=== PATIENT | male | born 1995 ===

== ENCOUNTER 2022-05-21 22:05 | Emergency (ER) | payer MEDICAID, SELFPAY ==
[2022-05-21 22:30] VITALS: BP 133/76; BP 170/90; PULSE 104; PULSE 113; RESP 16; TEMP 36.8; O2SAT 97; O2SAT 99; BMI 26.8
--- NOTE | 2022-05-22 01:38 | PC.NURSE ---
As I was about to operating room registered nurse this patients' room to assess him for the first time I found the pt standing in the hallway. I asked the pt if he was ok and he responded yeah i want to go hme. I introduced myself and asked him if he had spoken with the doctor yet. The patients response was this: No man, I've been in there for two hours and not one fucking person has come in my room. The patient had been in his room for less than an hour, but I decided not to tell the pt this. I responded with the doctor should be in to see you soon but I'm here to talk to you now. But if you need to go you arealso free to leave. The pt then replied with this: thanks, smart ass. He then proceeded to walk out. As i did not feel like entertaining this pt with an argument that is not based in reality, I let him leave the department.
== END 2022-05-22 01:42 | disposition left against medical advice (07) ==
PROVIDERS: Emergency Provider Emergency Medicine
DX: R22.32 Localized swelling, mass and lump, left upper limb (principal)
CPT/HCPCS: 99281

== ENCOUNTER 2022-05-24 14:27 | Emergency (ER) | payer MEDICAID, SELFPAY ==
--- NOTE | 2022-05-24 15:05 | ED_ITS ---
HPI - Skin/Abscess/Foreign Bdy General Chief complaint: Skin/Abscess/Foreign Body <Kassidy Aguilar CNP - Last Filed: 05/24/22 15:08> Stated complaint: abscess under l arm <Kassidy Aguilar CNP - Last Filed: 05/24/22 15:08> Time Seen by Provider: 05/24/22 16:21 <Kassidy Aguilar CNP - Last Filed: 05/24/22 15:08> Source: patient and RN notes reviewed <JUDITH Gonzalez - Last Filed: 05/24/22 17:20> Mode of arrival: ambulatory <JUDITH Gonzalez - Last Filed: 05/24/22 17:20> Limitations: no limitations <JUDITH Gonzalez - Last Filed: 05/24/22 17:20> History of Present Illness HPI narrative: This is a 17-ware-llp-male presenting to the emergency department with complaint of lump in left armpit x 3 days. Patient states that he was seen at an urgent care two days ago, where he was given a course of Keflex and Bactrim. he states that after taking the Keflex he became very itchy and discontinued taking both antibiotics. He states that he has had increased pain, swelling and redness to the region. Denies any drainage. Denies any fevers or chills. Denies history of abscesses in the past. Patient reports that he had his tetanus immunization updated last year. <JUDITH Gonzalez - Last Filed: 05/24/22 17:20> MD complaint: abscess/boil <JUDITH Gonzalez - Last Filed: 05/24/22 17:20> Onset (ago): day(s) <JUDITH Gonzalez - Last Filed: 05/24/22 17:20> Tetanus up to date: yes <JUDITH Gonzalez - Last Filed: 05/24/22 17:20> Location: LUE <JUDITH Gonzalez Last Filed: 05/24/22 17:20> Severity: moderate <JUDITH Gonzalez Last Filed: 05/24/22 17:20> Quality: aching <JUDITH Gonzalez Last Filed: 05/24/22 17:20> Pain Consistency: constant <JUDITH Gonzalez - Last Filed: 05/24/22 17:20> Relieving factors: none <JUDITH Gonzalez - Last Filed: 05/24/22 17:20> Exacerbating factors: palpation and movement <JUDITH Gonzalez - Last Filed: 05/24/22 17:20> Context: none <JUDITH Gonzalez - Last Filed: 05/24/22 17:20> Associated symptoms: denies other symptoms <JUDITH Gonzalez - Last Filed: 05/24/22 17:20> Treatments prior to arrival: none <JUDITH Gonzalez - Last Filed: 05/24/22 17:20> Related Data Allergies/Adverse reactions: Allergies Allergy/AdvReac Type Severity Reaction Status Date / Time seafood Allergy Angioedema Verified 05/21/22 23:35 <Kassidy Aguilar CNP - Last Filed: 05/24/22 15:08> Review of Systems Review of Systems: Yes all other systems are reviewed and are negative <JUDITH Gonzalez - Last Filed: 05/24/22 17:20> [facility] Social History Social History: Social History Advance Directives: No Advance Directives Information Provided: No <Kassidy Aguilar CNP - Last Filed: 05/24/22 15:08> Physical Exam Vital Signs: Vital Signs: Last Vital Signs Temp 97.8 F 05/24/22 16:25 Pulse 83 05/24/22 16:25 Resp 15 05/24/22 16:25 BP 129/61 05/24/22 16:25 Pulse Ox 100 05/24/22 16:25 O2 Del Method 05/24/22 16:25 BMI result Body Mass Index 26.8 <Kassidy Aguilar CNP - Last Filed: 05/24/22 15:08> Vital Signs: Last Vital Signs Temp 97.8 F 05/24/22 16:25 Pulse 83 05/24/22 16:25 Resp 15 05/24/22 16:25 BP 129/61 05/24/22 16:25 Pulse Ox 100 05/24/22 16:25 O2 Del Method 05/24/22 16:25 BMI result Body Mass Index 26.8 <JUDITH Gonzalez - Last Filed: 05/24/22 17:20> Appearance: Alert. Oriented X3. No acute distress. HEENT: normal inspection CVS: Normal heart rate and rhythm. Pulses normal. Respiratory: No respiratory distress. Skin: Left axilla with 3cm round fluctuant mass noted with surrounding erythema. No drainage. Skin warm and dry. Normal skin color. Normal skin turgor. No rashes. Extremities: Normal inspection. Full ROM x 4 Neuro: Oriented X 3. No motor deficit. No sensory deficit. <JUDITH Gonzalez - Last Filed: 05/24/22 17:20> Course Course Course Narrative: This is an RME: Additional HPI, ROS, PE not included below will be deferred to primary provider. Patient is a 26-year-old male who presents emergency department for evaluation of an signs under left arm/axilla. He was seen at urgent care 2 days ago, given a prescription for 2 antibiotics of which he does not recall the name, and states that he became very itchy, both of his arms became very red and he thought he was having a reaction to the antibiotics therefore he stopped taking them after 1 day. Reports increase in pain, swelling, and redness to the abscess. Plan: placed back in waiting room pending bed availability, likely to require incision and drainage <Kassidy Aguilar CNP - Last Filed: 05/24/22 15:08> Reevaluation(s) Reevaluation #1: Patient seen and evaluated. Incision and drainage performed, patient tolerated procedure well without any complications or concerns. <JUDITH Gonzalez - Last Filed: 05/24/22 17:20> Time: 17:12 <JUDITH Gonzalez - Last Filed: 05/24/22 17:20> Medical Decision Making Medical Decision Making MDM Narrative: 32-zfes-qpk-male presenting today with an abscess to his left axilla requiring I&D. Patient was mildly hypertensive with a BP of 149/65 upon arrival, recheck 129/61, all other vital signs within normal limits. I&D performed with moderate amount of purulent drainage expressed. Patient previously seen at urgent care, given Keflex and bactrim. Discussed with patient to continue course of Bactrim, discontinue Keflex as per patient this caused him to break out in a rash. Counseled patient on good wound care with warm soaks and compresses. Encouraged patient to keep close eye on area, and to return with any new or worsening symptoms. Patient understands and agrees with plan. <JUDITH Gonzalez - Last Filed: 05/24/22 17:20> Differential Diagnosis Differential Diagnoses: The differential diagnosis associated with the presentation includes <JUDITH Gonzalez - Last Filed: 05/24/22 17:20> Abscess, cyst, cellulitis, hematoma <JUDITH Gonzalez - Last Filed: 05/24/22 17:20> Procedures Abscess I/D Site: upper extremity <JUDITH Gonzalez - Last Filed: 05/24/22 17:20> Side (if applicable): left <JUDITH Gonzalez - Last Filed: 05/24/22 17:20> Local Anesthetic: lidocaine 1% <JUDITH Gonzalez - Last Filed: 05/24/22 17:20> Amount of anesthesia used (mL): 1 <JUDITH Gonzalez - Last Filed: 05/24/22 17:20> Technique: incised with blade <JUDITH Gonzalez - Last Filed: 05/24/22 17:20> Sent for culture/gram staining?: No <JUDITH Gonzalez - Last Filed: 05/24/22 17:20> Irrigation: Yes <JUDITH Gonzalez - Last Filed: 05/24/22 17:20> Packing used?: none <JUDITH Gonzalez - Last Filed: 05/24/22 17:20> Discharge Plan Discharge Clinical Impression: Abscess <Kassidy Aguilar CNP - Last Filed: 05/24/22 15:08> Patient Disposition: Home, Self-Care <Kassidy Aguilar CNP - Last Filed: 05/24/22 15:08> Instructions: Abscess (ED), Abscess Incision and Drainage (DC) <Kassidy Aguilar CNP - Last Filed: 05/24/22 15:08> Additional Instructions: Continue previously prescribed antibiotic as directed. Apply warm compresses to the area multiple times a day. Clean wound clean and dry. If you develop new or worsening symptoms call 911 or come back to the ER for further evaluation. <Kassidy Aguilar CNP - Last Filed: 05/24/22 15:08> Stand Alone Forms: Work/School Release <Kassidy Aguilar CNP - Last Filed: 05/24/22 15:08>
[2022-05-24 15:06] VITALS: BP 149/65; PULSE 60; RESP 78; TEMP 37; O2SAT 100; BMI 26.8
[2022-05-24 16:25] VITALS: BP 129/61; PULSE 83; RESP 15; TEMP 36.6; O2SAT 100
== END 2022-05-24 17:13 | disposition home or self-care (01) ==
PROVIDERS: Emergency Provider Emergency Medicine Emergency Medical Services
DX: L02.412 Cutaneous abscess of left axilla (principal)
CPT/HCPCS: 10060; 99284

== ENCOUNTER 2022-08-12 22:12 | Emergency (ER) | payer OTHER, SELFPAY ==
[2022-08-12 22:19] VITALS: BP 123/69; PULSE 94; RESP 18; TEMP 36.8; O2SAT 97; BMI 28.3
--- NOTE | 2022-08-12 22:36 | ED_ITS ---
HPI - Headache General Chief Complaint: Headache Stated Complaint: Pain in head Time Seen by Provider: 08/12/22 22:27 Source: patient Mode of arrival: ambulatory Limitations: no limitations History of Present Illness HPI Narrative: Patient complaining of sharp shooting pain left occipital area for last 2- 3 days no history of migraine headaches in the past and also having cold symptoms for last few days. Patient claimed that he has been taking tramadol, ibuprofen every 4-6 hours not in any distress no fever no chills Related Data Previous Rx's Medication Instructions Recorded zfcwrawack-zjdrmyuzuemai-aldujhvk 1 cap PO Q6H PRN headache #20 caps 08/12/22 50 mg-300 mg-40 mg capsule (Fioricet) Allergies Allergy/AdvReac Type Severity Reaction Status Date / Time seafood Allergy Angioedema Verified 05/21/22 23:35 Review of Systems Review of Systems: Yes all other systems are reviewed and are negative [facility] Social History Social History Alcohol intake: former Smoked in Last 30 Days: No Substance Use Type: Marijuana Substance Use Frequency: Daily Last Used Substance: Hours (ago) Advance Directives: No Advance Directives Information Provided: No Physical Exam Vital Signs: Vital Signs: Last Vital Signs Temp 98.2 F 08/12/22 22:19 Pulse 94 08/12/22 22:19 Resp 18 08/12/22 22:19 BP 123/69 08/12/22 22:19 Pulse Ox 97 08/12/22 22:19 O2 Del Method Room Air 08/12/22 22:19 BMI result Body Mass Index 28.3 Appearance: Alert. Oriented X3. No acute distress. Eyes: PERRLA, No Nystagmus HEENT: Pharynx normal. Oral Mucosa moist clear rhinorrhea tenderness at C2 nerve location on the occipital area Neck: Normal inspection. Neck supple. CVS: Normal heart rate and rhythm. Pulses normal. Respiratory: No respiratory distress. Equal air entry bilateral, Abdomen: Soft and nontender. Skin: Skin warm and dry. Normal skin color. Normal skin turgor. Neuro: Oriented X 3. Medications Administered Discontinued Medications Generic Name Dose Route Start Last Admin Trade Name Freq PRN Reason Stop Dose Admin Ketorolac Tromethamine 60 mg 08/12/22 23:22 08/13/22 00:24 Ketorolac Tromethamine 60 Mg/2 Ml Vial IM 08/12/22 23:23 60 mg ONCE ONE Administration Lidocaine HCl 2 ml 08/12/22 22:40 08/12/22 23:03 Lidocaine Hcl 1 % Mpf 2 Ml Vial INFILTRATI 08/12/22 22:41 2 ml ONCE ONE Administration Medical Decision Making Medical Decision Making [facility] Narrative: Occipital nerve block was done using lidocaine 1% 2 cc was used patient claims did get some relieve in the pain although still asking for pain medication was given Toradol IM discharge patient home on Fioricet Discharge Plan Discharge Clinical Impression: Cervical neuralgia Patient Disposition: Home, Self-Care Instructions: Acute Headache (ED) Additional Instructions: The headache is from occipital neuralgia Pain medication as advised Follow with PCP if not better Prescriptions: New tbqdnpunqz-ctcdwuclqqied-bkhn [Fioricet] 50-300-40 mg capsule 1 cap PO Q6H PRN (Reason: headache) Qty: 20 0RF Referrals: Claduia Wayne MD [Physician] - 1 week Stand Alone Forms: Work/School Release Interventions: ED Discharge Assessment Last Done: 08/13/22 00:29 Discharge Date/Time: 08/13/22 00:30
[2022-08-12] MEDS: Lidocaine HCl 1 % MPF 2 ML VIAL INFILTRATI (23:03)
[2022-08-13] MEDS: Ketorolac Tromethamine 60 MG/2 ML VIAL IM (00:24)
== END 2022-08-13 00:30 | disposition home or self-care (01) ==
PROVIDERS: Emergency Provider Internal Medicine
DX: M54.12 Radiculopathy, cervical region (principal); R51.9 Headache, unspecified
CPT/HCPCS: 96372; 99284; J1885

== ENCOUNTER 2022-08-25 00:18 | Emergency (ER) | payer MEDICAID, SELFPAY ==
[2022-08-25 00:21] VITALS: BP 130/76; PULSE 72; RESP 20; TEMP 36.5; O2SAT 98; BMI 28.2
[2022-08-25] MEDS: Ketorolac Tromethamine 15 MG/ML VIAL IM (01:13)
[2022-08-25] MEDS: Acetaminophen 325 MG TABLET 975 MG PO (01:14)
[2022-08-25 01:18] VITALS: BP 120/64; PULSE 74; RESP 18; TEMP 36.4; O2SAT 97
--- NOTE | 2022-08-25 01:52 | PC.NURSE ---
pt verbalizes no relief from pain medication at this time, aware
--- NOTE | 2022-08-25 03:03 | ED_ITS ---
HPI - Headache General Chief Complaint: Headache Stated Complaint: Head Pain Time Seen by Provider: 08/25/22 01:02 Source: patient Mode of arrival: ambulatory History of Present Illness HPI Narrative: 26-year-old male who states he has had persistent left occipital headache for 2 months that is not been associated with any neck pain, injury, fever, chills, visual disturbance or change in hearing. 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 He was last seen here and prescribed Fioricet for the headache but denies any sore throat or ear pain or photosensitivity. Related Data Previous Rx's Medication Instructions Recorded eqzxvcgpbo-ixdotqkbvqots-ymytgaci 1 cap PO Q6H PRN headache #20 caps 08/12/22 50 mg-300 mg-40 mg capsule (Fioricet) Allergies Allergy/AdvReac Type Severity Reaction Status Date / Time seafood Allergy Angioedema Verified 08/25/22 00:21 Review of Systems Review of Systems: Pertinent positives and negatives as stated in HPI [facility] Past Medical History Source: nursing notes reviewed Social History Social History Alcohol intake: former Substance Use Type: Marijuana Advance Directives: No Advance Directives Information Provided: Yes Physical Exam Vital Signs: Vital Signs: Last Vital Signs Temp 97.5 F 08/25/22 01:18 Pulse 74 08/25/22 01:18 Resp 18 08/25/22 01:18 BP 120/64 08/25/22 01:18 Pulse Ox 97 08/25/22 01:18 O2 Del Method Room Air 08/25/22 01:18 BMI result Body Mass Index 28.2 VITAL SIGNS: Reviewed. GENERAL: Well developed, well nourished, in no acute distress. HEAD: Normocephalic/atraumatic, EYES: PERRLA, EOMI intact without pain, no nystagmus/pallor/icterus noted EARS: Ext canals without abnormality, TMs non-bulging and non-erythematous NOSE: Nares patent bilateral OROPHARYNX: no oral lesions noted, posterior pharynx clear and non-erythematous without noted tonsillar enlargement/erythema/exudates NECK: Supple, no adenopathy LUNGS: Normal breath sounds. No adventitious sounds or accessory muscle use. SpO2<97> CARDIOVASCULAR: Regular rate and rhythm without noted murmurs ABDOMEN: Soft, non-tender, non-distended with bowel sounds. MUSCULOSKELETAL: No tenderness, deformities, or effusions noted on gross inspection. EXTREMITIES: No cyanosis, clubbing or edema. SKIN: Inspection of the skin reveals no rashes NEUROLOGIC: Alert and oriented x 4. Strength and sensation to light touch were grossly intact x 4. Medications Administered Discontinued Medications Generic Name Dose Route Start Last Admin Trade Name Pengq PRN Reason Stop Dose Admin Acetaminophen 975 mg 08/25/22 01:05 08/25/22 01:14 Acetaminophen 325 Mg Tablet PO 08/25/22 01:06 975 mg ONCE ONE Administration Ketorolac Tromethamine 15 mg 08/25/22 01:05 08/25/22 01:13 Ketorolac Tromethamine 15 Mg/Ml Vial IM 08/25/22 01:06 15 mg ONCE ONE Administration Medical Decision Making Medical Decision Making [facility] Narrative: 26-year-old male presents with I suspect is a tension type headache, low clinical suspicion for migrainous in nature and inconsistent with cluster type headache. On clinical exam there is no evidence of external canal or mastoid tenderness. Will try combination analgesics to include Toradol and then discharge the patient on a prescription of Toradol with high-dose Tylenol. Also recommended patient follow-up with a massage therapist or chiropractor, as he has limited ability to get in to Neurology for further headache workup. He was also no encouraged to keep a headache journal in effort to facilitate his next provider. There are no red flag symptoms at this time to suggest meningitis or Lyme disease. I was informed that patient eloped. Differential Diagnosis Please see the discussion above Discharge Plan Discharge Clinical Impression: Headache Patient Disposition: Elopement Prescriptions: No Action khmteraqfx-eemrxwgireqfa-sist [Fioricet] 50-300-40 mg capsule 1 cap PO Q6H PRN (Reason: headache) Qty: 20 0RF Interventions: ED Discharge Assessment Last Done: 08/25/22 03:01
== END 2022-08-25 03:03 | disposition left against medical advice (07) ==
PROVIDERS: Emergency Provider Student in an Organized Health Care Education/Training Program
DX: R51.9 Headache, unspecified (principal); Z79.899 Other long term (current) drug therapy
CPT/HCPCS: 96372; 99283; 99284; J1885

== ENCOUNTER 2022-12-20 12:21 | Outpatient (REF) | payer MEDICAID, SELFPAY ==
[2022-12-20 13:34] LABS: Estimated Average Glucose 103 mg/dL; Hemoglobin A1c % 5.2 % (<6.0)
[2022-12-20 14:22] LABS: Alanine Aminotransferase 25 U/L (0-40); Albumin Level 4.7 g/dL (3.5-5.0); Alkaline Phosphatase 68 U/L (39-117); Anion Gap 12 (12-20); Aspartate Amino Transferase 17 U/L (5-37); Bilirubin Total 0.2 mg/dL (0.0-1.0); Blood Urea Nitrogen 13 mg/dL (9-16); Calcium 9.7 mg/dL (8.4-10.2); Carbon Dioxide 25 mmol/L (22-29); Chloride 110 mmol/L (96-108); Cholesterol 129 mg/dL (<200); Estimated Glomerular Filt Rate > 60; Glucose Random 81 mg/dL (60-115); HDL Cholesterol 49 mg/dL (>40); LDL Cholesterol Calculated 58 mg/dL (<100); Potassium 3.9 mmol/L (3.3-5.1); Sodium 143 mmol/L (135-145); Triglycerides 111 mg/dL (<150)
[2022-12-20 16:36] LABS: Appearance Urine Clear; Color Urine Yellow; Glucose Urine UA Negative (Negative); Leukocyte Esterase Urine Negative (Negative); Nitrite Urine Negative (Negative); Specific Gravity - Urine 1.025 (1.005-1.025); Urine Blood Negative (Negative); Urine Ketones Negative (Negative); Urine Protein Negative (Neg-Trace)
[2022-12-20 16:43] LABS: Bacteria Urine None Seen (None Seen); Hyaline Casts Urine 0-2 /LPF (0-2); RBC Urine 0-2 /HPF (0-2); Squamous Epithelial Cell Urine 0-2 /HPF (0-2); WBC Urine 0-5 /HPF (0-5)
[2022-12-21 08:30] LABS: HBS Num1 1.45 mIU/mL (0-7.99); HBc Num1 0.08 S/CO (0.00-0.79); HBsAGNum1 0.46 S/CO (0.00-0.99); HIV AB/AG Nonreactive (Nonreactive); HIV Num 1 0.05 S/CO (0.00-0.99); Hepatitis B Core Antibody Nonreactive (Nonreactive); Hepatitis B Surface Antigen Negative (Negative); ~HepC Num1 0.15 S/CO (0.00-0.79); ~Hepatitis B Surface Antibody NONREACTIVE (Nonreactive); ~Hepatitis C Antibody Nonreactive (Nonreactive)
[2022-12-24 12:50] LABS: RPR Rapid Plasma Reagin NON-REACTIVE (NON-REACTIVE)
== END 2022-12-20 12:22 | disposition home or self-care (01) ==
LOC: HO.HHCL 12:21
PROVIDERS: Visit Provider Nurse Practitioner Primary Care
DX: Z00.00 Encounter for general adult medical examination without abnormal findings (principal); M54.6 Pain in thoracic spine; Z13.1 Encounter for screening for diabetes mellitus; Z13.220 Encounter for screening for lipoid disorders; Z11.3 Encounter for screening for infections with a predominantly sexual mode of transmission
CPT/HCPCS: 36415; 80053; 80061; 81001; 83036; 86592; 86704; 86706; 86803; 87340; 87389

== ENCOUNTER 2024-09-10 11:17 | Outpatient (REF) | payer MEDICAID, SELFPAY ==
[2024-09-10 13:27] LABS: MANUAL DIFF FLAG NO
[2024-09-10 13:28] LABS: Basophils Percent Auto 0.5 % (0-2); Eosinophils Absolute Auto 0.2 X10*3/uL (0.0-0.4); Eosinophils Percent Auto 2.6 % (0-4); Hematocrit 41.8 % (42.0-52.0); Hemoglobin 13.9 g/dl (14.0-18.0); Imm Gran Abs Auto 0.06 X10*3/uL (0.00-0.03); Lymphocytes Absolute Auto 1.2 X10*3/uL (1.2-4.9); Lymphocytes Percent Auto 19.5 % (20-40); Mean Corpuscular HGB Conc 33.3 g/dl (31.0-36.0); Mean Corpuscular Hemoglobin 28.4 pg (27.0-33.0); Mean Corpuscular Volume 85.3 fL (80.0-98.0); Mean Platelet Volume 10.9 fL (9.4-12.4); Monocytes Absolute Auto 0.3 X10*3/uL (0.1-1.2); Monocytes Percent Auto 4.8 % (2-11); Neutrophils Absolute Auto 4.3 x10*3/uL (2.0-8.3); Neutrophils Percent Auto 71.6 % (45-73); Platelet Count 339 X10*3/uL (160-400); Red Cell Distribution Width 13.7 % (11.0-16.0)
[2024-09-10 14:02] LABS: TSH reflex Free T4 0.39 uIU/mL (0.32-4.0)
[2024-09-14 14:43] LABS: Testosterone, Free 63.5 pg/mL (35.0-155.0); Testosterone, Total 329 ng/dL (250-1100)
== END 2024-09-10 11:18 | disposition home or self-care (01) ==
LOC: HO.HHCL 11:17
PROVIDERS: Visit Provider Nurse Practitioner Primary Care
DX: R68.82 Decreased libido (principal); R40.0 Somnolence
CPT/HCPCS: 36415; 84402; 84403; 84443; 85025

== ENCOUNTER 2024-10-01 16:03 | Outpatient (REF) | payer MEDICAID, SELFPAY ==
--- NOTE | ~2024-10-01 | MR_ITS ---
EXAMINATION: MR BRAIN AND IACS WITHOUT AND WITH CONTRAST CLINICAL INFORMATION: Severe daily headaches; residual cranial nerve VII palsy since 2023. COMPARISON: None available. TECHNIQUE: Multiplanar, multisequence MRI of the brain and IACs was obtained before and after the intravenous administration of 7.5 mL Gadavist. Exam performed on 1.5 Charline Siemens high-field unit. FINDINGS: There is no diffusion restriction. There is no intracranial hemorrhage, acute infarction, mass effect, or edema. Ventricles, sulci, and cisterns are normal in size and configuration for patient age. No shift of midline. No abnormal hemosiderin deposition is identified. There are no white matter signal abnormalities. Minimal enhancement of the tympanic segment right 7th nerve, without abnormal enlargement of the nerve. Normal enhancement of the genu, labyrinthine and mastoid segments. No abnormal enhancement of the cisternal or canalicular segments. There is no additional abnormal intra or extra-axial enhancement after the administration of contrast. 7th and 8th cranial nerves are normal in course and caliber. Normal CSF signal within the IACs, Meckel's caves, prepontine cistern, CP angle cisterns, and labyrinthine structures. Remainder the imaged cranial nerves are normal in course and caliber. Midline structures appear normally formed. The pituitary gland appears normal. Posterior fossa structures appear normal. Cerebellar tonsils are appropriately located. Major flow voids are preserved within the skull base. The globes and orbital contents demonstrate no abnormalities. Paranasal sinuses are clear bilaterally. Nasal septum is midline without spur. The mastoids and tympanic cavities are normally aerated. Extracranial soft tissues demonstrate no abnormalities. No suspicious bone marrow changes are evident. Atlantoaxial joint is normal. MR/MR head/brain wo/w con IMPRESSION: 1. No evidence of intracranial hemorrhage, acute infarction, mass effect, or edema. 2. No abnormal white matter signal abnormalities. 3. Minimal abnormal enhancement without enlargement of the tympanic segment right 7th nerve. 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 No additional abnormal cranial nerve enhancement. Electronically signed by: Neymar Kelly MD 10/05/2024 09:07 AM EDT
--- OUTSIDE RECORDS SUMMARY | 2024-10-01 16:16 | XMS_ITS | Clinical Summary ---
Author Organization [facility] Address [address] [place] [address] Phone Care Team Providers Care Supervisor [employer] Name Role Phone Miranda Acuna NP Primary Care Provider [phone] Allergies No known active allergies Medications No known medications Active Problems No known active problems Encounters Date Type Department Care Team Description 08/06/2024 9:34 AM EDT - 08/06/2024 12:22 PM EDT Emergency [facility] Emergency [address] [place] [address] Laceration of right index finger without foreign body without damage to nail, initial encounter (Primary Dx) Discharge Disposition: Home or Self Care from Last 3 Months Medical History Medical History Date Comments Asthma Hypertension Social History Tobacco Use Types Packs/Day Years Used Date Smoking Tobacco: Every Day Cigarettes Smokeless Tobacco: Never Tobacco Cessation:Ready to Q uit: Not Asked; Counseling Given: Not Answered Alcohol Use Standard Drinks/Week Comments Never 0 (1 standard drink = 0.6 oz pur e alcohol) Sex and Gender Information Value Date Recorded Sex Assigned at Not on file Legal Sex Male 5:42 PM EST Gender Identity Not on file Sexual Orientation Not on file Obstetrics History Last Filed Vital Signs Vital Sign Reading Time Taken Comments Blood Pressure 114/72 08/06/2024 9:25 AM EDT Pulse 89 08/06/2024 9:25 AM EDT Temperature 36.5 C (97.7 F) 08/06/2024 9:25 AM EDT Respiratory Rate 17 08/06/2024 9:25 AM EDT Oxygen Saturation 98% 08/06/2024 9:25 AM EDT Inhaled Oxygen Concentration - - Weight 78 kg (172 lb) 08/06/2024 9:25 AM EDT Height 167.6 cm (5' 6 ) 08/06/2024 9:25 AM EDT Body Mass Index 27.76 08/06/2024 9:25 AM EDT Plan of Treatment Health Maintenance Due Date Last Done Comments Pneumococcal Vaccine: Pediatrics (0 to 5 Years) and At-Risk Patients (6 to 64 Years) (1 of 2 - PCV) 2012 Cholesterol Screening (Lipid Panel) 03/03/2022 HIV Screening 03/03/2022 Social Influencers of Health Screening 03/03/2022 COVID-19 Vaccine ( season) 2023 03/23/2022, 06/24/2021, 11/15/2020, Additional history exists Depression Screening 05/12/2025 05/12/2024 DTaP,Tdap,and Td Vaccines (9 - Td or Tdap) 11/05/2031 11/04/2021, 07/22/2020, 11/09/2005, Additional history exists HIB Vaccines Completed 03/14/1995, 05/03, 03/27/1994, Additional history exists MMR Vaccines Completed 10/25/1997, 03/14/1995 IPV Vaccines Completed 10/12/1998, 05/03, 03/27/1994, Additional history exists Varicella Vaccines Completed 12/24/2007, 10/25/1997 Hepatitis A Vaccines Completed 01/06/2009, 11/29/19 05 HPV Vaccines Completed 03/07/2011, 07/2010, 01/31/2010 Meningococcal ACWY Vaccine Aged Out 02/14/2015, No longer eligible based on patient's age to complete this topic Hepatitis C Screening Completed 12/20/2022 Hepatitis B Vaccines Completed 01/24/2023, 12/27/2022, 08/21/1994, Additional history exists Influenza Vaccine Completed 05/12/2024, 02/14/2015 Meningococcal B Vaccine Aged Out No l onger eligible based on patient's age to complete this topic RSV Immunization Patients Under 20 months Aged Out No longer eligible based on patient's age to complete this topic Procedures Procedure Name Priority Date/Time Associated Diagnosis Comments HC REPAIR WOUND LEVEL 1 Routine 08/06/2024 12:06 PM EDT OH REPAIR SPRFCL WOUNDS SIMPLE SCALP/NECK/AXILLAE/ GENT/TRUNK/EXT <= 2.5 CM Routine 08/06/2024 12:06 PM EDT XR FINGERS 2+ VIEWS RIGHT STAT 08/06/2024 9:53 AM EDT from Last 3 Months Results * OH REPAIR SPRFCL WOUNDS SIMPLE SCALP/NECK/AXILLAE/GENT/TRUNK/EXT <= 2.5 CM, HC REPAIR WOUND LEVEL 1 (08/06/2024 12:06 PM EDT) Donaldo Lyle DO - 08/06/2024 12:06 PM EDT JUDITH Daniels 08/06/2024 12:10 PM Laceration Repair Date/Time: 08/06/2024 12:06 PM Performed by: JUDITH Daniels Authorized by: Donaldo Garcia DO Consent: Consent obtained: Verbal Consent given by: Patient Risks, benefits, and alternatives were discussed: yes Risks discussed: Infection, poor cosmetic result, poor wound healing and retained foreign body Anesthesia: Anesthesia method: Local infiltration Local anesthetic: Lidocaine 2% w/o epi Laceration details: Location: Finger Finger location: L index finger Length (cm): 1 Depth (mm): 2 Pre-procedure details: Preparation: Patient was prepped and draped in usual sterile fashion and imaging obtained to evaluate for foreign bodies Exploration: Hemostasis achieved with: Direct pressure Imaging obtained: x-ray Imaging outcome: foreign body not noted Wound exploration: wound explored through full range of motion and entire depth of wound visualized Wound extent: no tendon damage noted and no underlying fracture noted Treatment: Area cleansed with: Povidone-iodine Amount of cleaning: Standard Irrigation solution: Tap water and sterile saline Irrigation volume: 50cc Irrigation method: Pressure wash and tap Visualized foreign bodies/material removed: no Skin repair: Repair method: Sutures Suture size: 5-0 Suture material: Prolene Suture technique: Simple interrupted Number of sutures: 3 Approximation: Approximation: Close Repair type: Repair type: Simple Post-procedure details: Dressing: Non-adherent dressing Procedure completion: Tolerated well, no immediate complications Donaldo Garcia DO IN CLINIC/BEDSIDE ORDERABLE S Final Result * XR Fingers 2+ Views Right (08/06/2024 9:53 AM EDT) Anatomical Region Laterality Modality Upper Extremities, Fingers Right Radio graphic Imaging 08/06/2024 10:0 0 AM EDT Impressions 08/06/2024 10:02 AM EDT Normal examination. Code 17318 -------- FINAL REPORT -------- Dictated By: Giovany Mccormack Dictated Date: 08/06/2024 10:00 ET Assigned Physician: Giovany Mccormack Reviewed and Electronically Signed By: Giovany Mccormack Signed Date: 08/06/2024 10:02 ET Workstation ID: [id number] Transcribed By: Self Edit Transcribed Date: 08/06/2024 10:00 ET Narrative 08/06/2024 10:02 AM EDT HISTORY: The patient is a 28-year-old male with pain in the right second finger following trauma. FINDINGS: AP radiograph of the right hand, along with coned-down oblique and lateral views of the right second finger, are obtained. The study demonstrates no fracture, dislocation, arthritic change, or other bony abnormality. No radiopaque foreign body or soft tissue abnormality is seen. Procedure Note Giovany Mccormack MD - 08/06/2024 HISTORY: The patient is a 28-year-old male with pain in the right secondfinger following trauma. FINDINGS: AP radiograph of the right hand, along with coned-down obliqueand lateral views of the right second finger, are obtained. The studydemonstrates no fracture, dislocation, arthritic change, or other bonyabnormality. No radiopaque foreign body or soft tissue abnormality isseen. IMPRESSION: Normal examination. Code 46701 -------- FINAL REPORT -------- Dictated By: Giovany Mccormack Dictated Date: 08/06/2024 10:00 ET Assigned Physician: Giovany Mccormack Reviewed and Electronically Signed By: Giovany Mccormack Signed Date: 08/06/2024 10:02 ET Workstation ID: [id number] Transcribed By: Self Edit Transcribed Date: 08/06/2024 10:00 ET us Donaldo Garcia DO IMG XR PROCEDURES Final Res ult from Last 3 Months Insurance MEDICAID - [place] Care Teams Supervisor [employer] Relationship Specialty Start Date End Date Miranda Acuna NP [address] [phone] PCP - General 08/06/24
--- OUTSIDE RECORDS SUMMARY | 2024-10-01 16:16 | XMS_ITS | Encounter Summary ---
Author Organization [employer] Address [address] [place] [address] Care Team Providers Care Air Traffic Systems Technician Name Role Phone Miranda Acuna Primary Care Provider [phone] Reason for Visit * Reason Onset Date Comments Referral 09/22/2024 Encounter Details Date Type Department Care Team ([facility] st Contact Info) Description 09/22/2024 Telephone [facility] [address] [place] [address] Miranda Acuna ANP [address] [place] [address] Referral Social History Tobacco Use Types Packs/Day Years Used Date Smoking Tobacco: Never Passive Smoke Exposure: Never Smokeless Tobacco: Never Alcohol Use Standard Drinks/Week Comments Never 0 (1 standard drink = 0.6 oz pur e alcohol) Depression Answer Date Recorded Patient Health Questionnaire-9 Score 0 05/12/2024 Patient Health Questionnaire-9 Score 0 05/12/2024 Last PHQ-9: Questionnaire Data Not on file 0 05/12/2024 Housing Stability Answer Date Recorded What is your housing situation today? I have yolanda arboleda 05/12/[address] you li ve. Do you have problems with any of the following? None of the above 05/12/2024 Food Insecurity Answer Date Recorded Within the past 12 months, y ou worried that your food would run out before you got money to buy more: Never True 05/12/2024 Within the past 12 months,th e food you bought just didn't last and you didn't have enough money to get more: Never True 01/2025 Transportation Answer Date Recorded In the past 12 months, has l ack of transportation kept you from medical appts, meetings, work or from getting things needed for daily living? No 05/12/2024 Utilities Answer Date Recorded In the past 12 months, has t he electric, gas, oil or water company threatened to shut off services in your home? No 05/12/2024 Depression Answer Date Recorded Patient Health Questionnaire-2 Score 0 05/12/2024 Internet Access Answer Date Recorded Internet Access Q1 No 05/12/2024 Internet Access Q2 Not on file 05/12/2024 Sex and Gender Information Value Date Recorded Sex Assigned at Male 03/23/2022 1:20 PM EST Legal Sex Male 1:16 PM EST Gender Identity Male 03/23/2022 1:20 PM EST Sexual Orientation Don't know 12/18/2022 3: 33 PM EDT documented as of this encounter Miscellaneous Notes * Telephone Encounter - Kassidy Godoy RN - 09/28/2024 1:54 PM EDT Called pt who stated he is aware of neurology appt below. Advised him to keep this appt, pt verbalized understanding. * Telephone Encounter - LENNIE Maradiaga - 09/28/2024 12:39 PM EDT Can we just make sure pt is aware? thanks * Telephone Encounter - LENNIE Maradiaga - 09/28/2024 12:38 PM EDT Perfect thank you * Telephone Encounter - Kassidy Godoy RN - 09/28/2024 11:29 AM EDT Called [facility] x2, spoke with Flakita who stated that the pt is scheduled for 02/08/[address] Chase at 9:30am. Will send update to PCP. * Telephone Encounter - Kassidy Godoy RN - 09/22/2024 4:17 PM EDT Received paperwork from [facility] stating PCP might consider PT for this patient. 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 Called [facility], left message with Ranjit asking for call back for clarification regarding referral. Was told to expect call back tomorrow. documented in this encounter Plan of Treatment Upcoming Encounters Date Type Department Care Team (Late st Contact Info) Description 11/24/2024 11:00 AM EDT Office Visit [facility] [address] [place] [address] iMranda Acuna ANP [address] [place] [address] documented as of this encounter Visit Diagnoses Not on filedocumented in this encounter Additional Health Concerns Assessment Noted Time PHQ-9 Depression Total Score: 0 05/12/19 25 10:02 AM EST documented as of this encounter Care Teams Air Traffic Systems Technician Relationship Specialty Start Date End Date Miranda Acuna ANP [address] [place] [id number] PCP - General Family Medicine 12/20/22 documented as of this encounter
== END 2024-10-01 16:04 | disposition home or self-care (01) ==
LOC: HO.MRI 16:03
PROVIDERS: PCP Nurse Practitioner Primary Care; Visit Provider Nurse Practitioner Primary Care
DX: G51.0 Bell's palsy (principal); R51.9 Headache, unspecified; Z86.69 Personal history of other diseases of the nervous system and sense organs
CPT/HCPCS: 70553; A9585

== ENCOUNTER → 2024-10-01 16:04 | Outpatient (BNV) | payer MEDICAID, SELFPAY | PROVIDERS: PCP Nurse Practitioner Primary Care; Visit Provider Radiology Diagnostic Radiology | DX: R51.9 Headache, unspecified (principal); G51.0 Bell's palsy | CPT/HCPCS: 70553 ==